=== PATIENT | female | born 1970 | race Caucasian/White ===

== ENCOUNTER 2019-07-21 16:54 | Emergency (ER) | payer BC, OTHER ==
[~2019-07-21] VITALS: Ht 160 cm; Wt 56.7 kg
[2019-07-21] MEDS ORDERED: PARO25TA16 PO (17:32)
[2019-07-21] MEDS ORDERED: HYDROCODONE/APAP 5-325MG TABLET PO ONE (17:45)
[2019-07-21] MEDS ORDERED: HYDROCODONE/APAP 5-325MG TABLET ONE (18:03)
[2019-07-21] MEDS ORDERED: TDAP DIPH,PERTUSS,TET VAC/PF 0.5 ML DISP.SYRIN IM ONE (18:30)
--- NOTE | 2019-07-21 18:31 | NUR ---
Site cleaned and dressing applied to Lt middle finger per MD.
[2019-07-21 18:32] VITALS: BP 108/55
== END 2019-07-21 18:32 | disposition home or self-care (01) ==
LOC: ER 16:56
PROC: 0HQFXZZ Repair Right Hand Skin, External Approach (ICD-10-PCS; principal; 2019-07-21)
DX: S61.212A Laceration without foreign body of right middle finger without damage to nail, initial encounter (principal); W26.0XXA Contact with knife, initial encounter; Y92.89 Other specified places as the place of occurrence of the external cause
CPT/HCPCS: A4217; A4663